=== PATIENT | female | born 1955 | race Caucasian/White ===

== ENCOUNTER 2018-04-20 18:26 | Emergency (ER) | payer MEDICARE ==
[~2018-04-20] VITALS: Ht 160 cm; Wt 61.4 kg
[2018-04-20 18:44] VITALS: Ht 160 cm; Wt 61.4 kg
[2018-04-20] MEDS ORDERED: ULTRAM50 MG PO (22:05)
[2018-04-20] MEDS ORDERED: KEFLEX500 MG PO (22:05)
[2018-04-21 06:19] VITALS: BP 124/75
== END 2018-04-20 22:35 | disposition home or self-care (01) ==
LOC: D.ER 18:26
DX: S62.601A Fracture of unspecified phalanx of left index finger, initial encounter for closed fracture (principal); W23.0XXA Caught, crushed, jammed, or pinched between moving objects, initial encounter; Y93.89 Activity, other specified; Y92.019 Unspecified place in single-family (private) house as the place of occurrence of the external cause